=== PATIENT | female | born 1985 | race Caucasian/White ===

== ENCOUNTER 2019-11-28 15:18 | Outpatient (RCR) | payer OTHER, BC, SELFPAY ==
--- NOTE | 2019-11-28 16:26 | PTOPEVAL ---
Thank you for referring this patient to [facility]. Please review, sign, date and return this plan of care ELA. I agree with and certify that the following plan of care is medically necessary. Referring Physician Date Admitting Provider: Attending Provider: PHYSICIAN NOT ON STAFF Referring Provider: *PT Outpatient Evaluation Start: 11/28/19 15:37 Freq: Status: Active Protocol: Document 11/28/19 15:37 CRYSTAL (Rec: 11/28/19 16:18 CRYSTAL [email or web address]) Therapy Assessment Status Assessment Status Assessment Status Evaluation Evaluation Information Problem Onset 02/02/18 Subjective Information Pt. reports that she has been Query Text:As Reported By Patient/ experiencing neck pain and as Family well as numbness and tingling into both arms. Pt. reports that she developed pain after undergoing lung surgery. she reports that she had spontaneous pnuemothorax on 3 occassions. She reports Pt. reports that her symptoms have incresaed over the recent months. She reports that pain can fluctuate. She underwent MRI about 2 weeks ago but has not gotten her results as of yet. Pt. reports that pain does not affect her while she is sleeping, but it is difficult to fall asleep due to pain. She reports that her goal is to reduce her pain. 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 continues to work full Comments time despite continued pain. Pain Assessment Pain Scale Pain Scale Used Numeric (1 - 10) Self Report Pain Assessment Neck Reported Pain Level 7 Pain Description Aching,Contra
--- NOTE | 2020-01-02 11:25 | PCPTNOTE ---
Pt. has failed to return to the clinic since 12/01/19. She will be discharged from our care. Refer to pt. last daily note for discharge status. Hai Niño, MPT
== END 2019-12-01 09:26 | disposition home or self-care (01) ==
LOC: CHSPT 15:18
PROVIDERS: PCP Internal Medicine
DX: M79.2 Neuralgia and neuritis, unspecified (principal)
CPT/HCPCS: 97014; 97110; 97140; 97161; G0283

== ENCOUNTER 2020-04-03 14:56 | Outpatient (RCR) | payer OTHER, BC, SELFPAY ==
--- NOTE | 2020-04-09 18:22 | PTOPEVAL ---
Thank you for referring Ekaterina Mcqueen to [facility]. Please review, sign, date and return this plan of care ELA. I agree with and certify that the following plan of care is medically necessary. Referring Physician Date Admitting Provider: Attending Provider: Huey Alonzo, MD Referring Provider: *PT Outpatient Evaluation Start: 04/03/20 15:08 Freq: Status: Active Protocol: Document 04/03/20 15:09 CRYSTAL (Rec: 04/03/20 16:12 CRYSTAL [email or web address]) Therapy Assessment Status Assessment Status Assessment Status Evaluation Evaluation Information Problem Diagnosis right shoulder/neck pain with radiculopathy Onset 02/02/18 Subjective Information Pt. reports having expierenced Query Text:As Reported By Patient/ neck and shoulder pain since Family undergoing lung surgery in 2018. She reports that pain is radiating from the upper neck, down the shoulder blades and both arms and hands experinence numbness and tingling. She has undergone MRI which revealed some bulging disc. She reports that her neurologist did not recommend surgery at this time . She reports that her goal is to decrease her pain. 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 Activity of Daily Living Ability Independent Indoor/Home Mobility Independent Community Mobility Independent Stairs Ability Independent Functional Cognition (Planning, Shopping Independent , Taking Medications) Cooking Yes Cleaning Yes Laundry Yes Shopping Yes Driving Yes Pain Assessment Pain Scale Pain Scale Used Numeric (1 - 10) Self Report Pain Assessment Neck Reported Pain Level 5 Pain Description Aching,Burning Pain Score Pain Score 5: Self Report Cervical and Lumbar ROM Cervical ROM Cervical Flexion (0-60) 55 Query Text:Active in Degrees Cervical Extension (0-70) 50 Query Text:Active in Degrees Cervical Lateral Flexion Right (0-50) 30 Query Text:Active in Degrees Cervical Lateral Flexion Left (0-50) 30 Query Text:Active in Degrees Cervical Rotation Right (0-90)
--- NOTE | 2020-06-06 06:58 | PCPTNOTE ---
Pt. has failed to return to the clinic. She will be discharged from PT services at this time. Please refer to the last daily treatment note for pt. discharge status. Hai Niño, MPT
== END 2020-04-03 16:00 | disposition home or self-care (01) ==
LOC: CHSPT 14:56
PROVIDERS: Visit Provider Internal Medicine
DX: M25.511 Pain in right shoulder (principal); M54.2 Cervicalgia; M54.10 Radiculopathy, site unspecified
CPT/HCPCS: 97110; 97161

== ENCOUNTER → 2021-04-05 08:49 | Outpatient (CLI) | payer OTHER, BC, SELFPAY ==
--- NOTE | ~2021-04-05 | MR_ITS ---
EXAMINATION: MR cervical spine wo con DATE: 04/05/2021 09:36 INDICATION: Radicular left arm pain. TECHNIQUE: Magnetic resonance imaging (MRI) of the cervical spine was performed without intravenous c ontrast. Sequences included sagittal T2-weighted FSE, sagittal T2-weighted FS FSE, sagittal T1-weight ed FSE, axial MERGE and axial T2-weighted FSE. COMPARISON: None FINDINGS: Bone alignment is normal. Vertebral body heights are normal. Bone marrow signal intensity is normal . Intervertebral disc heights are normal with normal disc signal. Cord signal intensity is normal. Ce rvical soft tissues are unremarkable. The following disc levels are specifically discussed: C2-C3: The disc does not extend beyond the endplate margin. There is moderate right uncovertebral tony nt osteoarthritis. There is mild left and mild to moderate right facet joint osteoarthritis. There is mild right neural foraminal stenosis. There is no central canal stenosis. C3-C4: The disc does not extend beyond the endplate margin. There is mild bilateral uncovertebral tony nt osteoarthritis. There is mild left and mild to moderate right facet joint osteoarthritis. There is minimal right neural foraminal stenosis. There is no central canal stenosis. C4-C5: Disc is minimally bulging.. There is minimal bilateral uncovertebral joint osteoarthritis. The re is mild left and mild to moderate right facet joint osteoarthritis. There is no neural foraminal s tenosis. There is no central canal stenosis. C5-C6: Disc is minimally bulging. There is mild bilateral uncovertebral joint osteoarthritis. There i s mild bilateral facet joint osteoarthritis. There is minimal left neural foraminal stenosis. There i s no central canal stenosis. C6-C7: The disc does not extend beyond the endplate margin. There is minimal bilateral uncovertebral joint osteoarthritis. There is mild bilateral facet joint osteoarthritis. There is minimal left neura l foraminal stenosis. There is no central canal stenosis. C7-T1: The disc does not extend beyond the endplate margin. There is no uncovertebral joint osteoarth ritis. There is mild bilateral facet joint osteoarthritis. There is no neural foraminal stenosis. The re is no central canal stenosis. IMPRESSION: 1. Minimal to mild cervical spondylosis. Reviewed, dictated and finalized at location A.
== END ==
PROVIDERS: PCP Internal Medicine; Visit Provider Internal Medicine
DX: M79.622 Pain in left upper arm (principal); M47.22 Other spondylosis with radiculopathy, cervical region
CPT/HCPCS: 72141

== ENCOUNTER 2022-02-21 10:25 | Outpatient (CLI) | payer OTHER, BC, SELFPAY ==
--- NOTE | 2022-02-26 11:25 | WPDPFTINT ---
PFT Procedure Performed PFT Procedure Performed Spirometry with Pre/Post Bronchodilator Plethysmography (Lung Vol) Diffusing Cap (DLCO) Flow Vol Loop PFT Interpretation DOS: 02/21/2022 REQUESTING: Dr. Jack Srinivasan REASON FOR TESTING: Wheezing PULMONARY FUNCTION TESTS Results are reliable and reproducible. Spirometry: Pre bronchodilator FEV1 is 2.44 L, 93% predicted. Pre bronchodilator FVC is 2.6 L, 83% predicted. FEV1/FVC ratio is 94% normal. There is no change after bronchodilator administration. Lung volumes: Total lung capacity is 4.5 L, 101% predicted, normal. Residual volume is 137%, 1.91 L, mildly increased. The RV/TLC is increased 134% predicted. This is consistent with air trapping. Airway resistance is increased. Diffusion: DLCO is 112% predicted, 19 mL/mmHg/min. Normal. Flow volume loop: The flow volume loop has irregular inspiratory and expiratory limbs. This is abnormal however it is nonspecific. IMPRESSION: This study shows normal spirometry without response to bronchodilator, mild air trapping which suggests an obstructive process with normal diffusion. In the proper clinical setting this could represent asthma. The lack of response to bronchodilator should not preclude use of clinically indicated. Nicky De La Cruz MD
== END 2022-02-21 10:26 | disposition home or self-care (01) ==
LOC: CHSCARD 10:28
PROVIDERS: PCP Family Medicine; Visit Provider Family Medicine
DX: R06.2 Wheezing (principal)
CPT/HCPCS: 94060; 94726; 94729

== ENCOUNTER 2022-04-23 11:56 | Outpatient (CLI) | payer OTHER, BC, SELFPAY ==
[2022-04-23 12:11] LABS: Hematocrit 40.1 % (35.0-49.0); Hemoglobin 13.6 g/dL (12.0-15.0); Mean Corpuscular HGB Conc 33.9 g/dL (32.0-36.0); Mean Corpuscular Hemoglobin 31.1 pg (27.0-31.0); Mean Corpuscular Volume 91.8 fL (78.0-102.0); Mean Platelet Volume 10.1 fl (9.2-11.8); Platelet Count Result 283 K/mm3 (150-420); Red Blood Count 4.37 M/mm3 (4.20-5.40); Red Cell Distribution Width 11.9 % (11.6-14.4); White Blood Count 7.1 K/mm3 (4.8-10.8)
[2022-04-23 12:59] LABS: Alanine Aminotransferase 28 U/L (14-59); Albumin Level 3.6 g/dL (3.4-5.0); Alkaline Phosphatase 76 U/L (46-116); Anion Gap 6 mmol/L (8-16); Aspartate Amino Transferase 17 U/L (15-37); Bilirubin,Total 0.3 mg/dL (0.00-1.00); Blood Urea Nitrogen 9 mg/dL (7-18); Calcium 8.9 mg/dL (8.5-10.1); Carbon Dioxide 29 mmol/L (21-32); Chloride 105 mmol/L (98-108); Estimated Glomerular Filt Rate > 60; Folic Acid 8.9 ng/mL (8.6->20); Glucose 83 mg/dL (70-99); Magnesium 1.8 mg/dL (1.8-2.4); Osmolality Calculated 287 mOsm/kg (285-295); Potassium 3.9 mmol/L (3.5-5.1); Sodium 140 mmol/L (136-145); Total Protein 6.9 g/dL (6.4-8.2); Vitamin B12 562 pg/mL (193-986)
[2022-04-23 14:02] LABS: Thyroid Stimulating Hormone Reflex 3.96 u/IU/mL (0.36-3.74)
[2022-04-23 14:11] LABS: Free T4 Free Thyroxine Reflex 1.01 ng/dL (0.76-1.46)
[2022-04-26 11:07] LABS: Prealbumin 20 mg/dL (17-34)
== END 2022-04-23 11:57 | disposition home or self-care (01) ==
LOC: CHSLAB 11:59
PROVIDERS: PCP Family Medicine; Visit Provider Family Medicine
DX: R53.82 Chronic fatigue, unspecified (principal); E11.9 Type 2 diabetes mellitus without complications; E53.8 Deficiency of other specified B group vitamins
CPT/HCPCS: 36415; 80053; 82607; 82746; 83735; 84134; 84439; 84443; 85027

== ENCOUNTER 2022-06-26 09:11 | Outpatient (CLI) | payer OTHER, SELFPAY ==
[2022-06-26 10:22] LABS: SARS-CoV-2 RNA PCR Negative (Negative)
== END 2022-06-26 09:12 | disposition home or self-care (01) ==
LOC: CHSLAB 09:14
PROVIDERS: PCP Family Medicine; Visit Provider Nurse Practitioner Family
DX: Z20.822 Contact with and (suspected) exposure to COVID-19 (principal)
CPT/HCPCS: C9803; U0003; U0005

== ENCOUNTER 2022-12-02 14:31 | Outpatient (RCR) | payer OTHER, SELFPAY ==
--- NOTE | 2022-12-02 17:35 | PTOPEVAL1 ---
Assessment and note entered by Trinh Wilkes, PT Evaluation Information Assessment Status Evaluation Diagnosis Neck Pain Subjective Information Ekaterina Mcqueen reports in 2018 she had a collapsed lung 3 times and she had a VATS lung surgery in February 2018. She started having neck pain about a week after the surgery and the pain has not resolved. She also has pain into her shoulder blades and her right > left arm will go numb. She notes the pain across the shoulder blades has been worse over the last month for unknown reasons. She has worse pain when she has to use her arms a lot and when turning her head or looking up. 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 She gets pain in the front of her chest muscles as well with work activities. She is able to get relief when she sleeping. She also has headaches in the back of her head that are daily lately. She has had pain management in the past with epidural injections. She has also tried PT in the past but was not consistent with it. 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 Reported Pain Level Pain Score 9: Self Report Assessment PT Clinical Summary Ekaterina Mcqueen presents with chronic neck and upper back pain. She has had a worsening of symptoms in the last month for unknown reasons. 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 She objectively demonstrates tenderness and tension in the upper trapezius muscles, restrictions in vertebral mobility, decreased cervical AROM, impaired posture, and decreased functional abilities. She will benefit from skilled PT to address these limitations and return her to her PLOF. Plan of Care Interventions Electrical Stimulation,Hot Pack/Cold Pack,Manual Therapy,Neuro Re-education,Patient/Caregiver Educati,Therapeutic Activities,Therapeutic Exercise PT Services Indicated Yes Treatment Frequency and 2 times a week for 12 visits Duration These treatments will address the objective and functional deficits as defined above. The patient will be advanced safely and appropriately in order for the patient to progress towards his/her prior level of function. Additional exercises will be introduced and as well as a comprehensive home exercise program upon discharge, if needed, ?to ensure carryover of functional gains achieved in the clinic. This
--- NOTE | 2023-01-13 16:59 | PTOPPROG ---
Assessment and note entered by JT File, PT Evaluation Information Assessment Status Progress Diagnosis Neck Pain Subjective Information patient reports she continues to have increased pain in the neck with increased activities. she reports she has less pain with rest and therapy treatment. Assessment PT Clinical Summary mrs. mcmahon is making slow progress towards goals, but continues to have increased pain in the neck with increased activities. she has made progress in cervical rotation to the R side, but continues to be tight in L cervical rotation. she would do well to continue skilled PT to address this and other remaining rom and strength deficits. Plan of Care Interventions Electrical Stimulation,Hot Pack/Cold Pack,Manual Therapy,Neuro Re-education,Patient/Caregiver Educati,Therapeutic Activities,Therapeutic Exercise PT Services Indicated Yes Treatment Frequency and continue skilled PT 2x weekly for 2 more visits Duration These treatments will address the objective and functional deficits as defined above. The patient will be advanced safely and appropriately in order for the patient to progress towards his/her prior level of function. Additional exercises will be introduced and as well as a comprehensive home exercise program upon discharge, if needed, ?to ensure carryover of functional gains achieved in the clinic. This treatment plan has been reviewed and agreement upon by the patient.
== END 2023-01-13 13:49 | disposition home or self-care (01) ==
LOC: CHSPT 14:31
DX: M54.2 Cervicalgia (principal)
CPT/HCPCS: 97014; 97110; 97140; 97161; G0283

== ENCOUNTER 2023-02-17 16:13 | Emergency (ER) | payer OTHER, SELFPAY ==
[2023-02-17 16:20] VITALS: BP 159/119; PULSE 93; RESP 18; TEMP 36.9; O2SAT 100
--- NOTE | 2023-02-17 16:45 | ED.EXTPRO ---
HPI - Extremity Problem General Chief complaint: Extremity Problem,Nontraumatic Stated complaint: left big toe pain, infected toenail Time Seen by Provider: 02/17/23 16:42 Source: patient Mode of arrival: ambulatory Limitations: no limitations History of Present Illness HPI Narrative: 37-year-old white female presents with 4-5 day history of gradually increasing pain in the left great toe along the toenail. 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 She reports this reminds her of that. Denies any fever, chills, denies any pain on any other part of her extremity. Denies any recent injury. In denies any burning or exposure to toxic chemicals. Related Data Home Medications Medication Instructions Recorded Confirmed cholecalciferol (vitamin D3) 125 125 mcg PO DAILY 02/07/22 02/17/23 mcg (5,000 unit) capsule tizanidine 4 mg capsule 4 mg PO QHS PRN Pain 02/07/22 02/17/23 Allergies Allergy/AdvReac Type Severity Reaction Status Date / Time Penicillins AdvReac Mild Unknown Verified 02/17/23 16:25 Review of Systems Review of Systems: All systems reviewed & are unremarkable except as noted in HPI and below ( HPI) [facility] Social History Social History Smoking status: Never smoker Alcohol intake: never Substance use: never Living arrangements: with family Additional living arrangements comments: with her boyfriend Occupation/Education: occupation 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 Gender identity (if verbalized by the patient): Female Exam Narrative: awake, alert, pleasant Const: General: healthy appearing Nutritional Appearance: well nourished Orientation/consciousness: patient oriented x3 Limitations: no limitations HENMT: Head: normal to inspection Face and sinus: normal facial exam Eyes: Conjunctivae: conjunctivae normal Pupils: Equal, round and reactive pupils present EOM: EOMs intact bilaterally Neck: Neck: normal visual inspection Resp: Effort & Inspection: normal respiratory effort Skin: General skin exam: normal color Rashes: no rashes Other: except for the left great toe which appears to have a medial ingrown nail, with erythema, swelling, Ms. Devonte paronychia is present. No proximal erythematous streak. the paronychial area is quite tender Neuro: General: patient oriented x3 and moves all extremities Extrem: General: normal to inspection Other: as noted above Psych: Mental Status: mental status grossly normal Affect: normal affect Attitude: cooperative Course Vital Signs Vital signs: Vital Signs Temperature 36.9 C 02/17/23 16:20 Pulse Rate 93 02/17/23 16:20 Respiratory Rate 18 02/17/23 16:20 Blood Pressure 159/119 H 02/17/23 16:20 Pulse Oximetry 100 02/17/23 16:20 Oxygen Delivery Room Air 02/17/23 16:20 Temperature 36.9 C 02/17/23 16:20 Pulse Rate 93 02/17/23 16:20 Respiratory Rate 18 02/17/23 16:20 Blood Pressure 150/90 H 02/17/23 19:03 Pulse Oximetry 100 02/17/23 16:20 Oxygen Delivery Room Air 02/17/23 16:20 Procedures Other Procedure Procedure 1: Other Procedure: left great toe was clean with dilute Betadine, anesthetized with 1% lidocaine utilizing a digital block and the paranychial tissue along the medial aspect was elevated, drained, and the ingrown portion of the medial toenail was elevated off the nail bed, approximate 4 mm section was cut back all the way to the root and removed including the root. Redundant paronychia tissue was sharply debrided, the whole area was thoroughly irrigated with sterile saline, and the nailbed cauterized with silver nitrate. the paranychial tissue along the lateral aspect was elevated, drained, and the ingrown portion of the lateral toenail was elevated off the nail bed, approximate 4 mm section was cut back all the way to the root and removed
[2023-02-17] MEDS: LIDOCAINE HCL 1% LOCAL INJ 10 ML VIAL INFILTRATE (16:49)
[2023-02-17] MEDS: SILVER NITRATE (*SP) STICK 1 EACH TOPICAL (16:50)
--- NOTE | 2023-02-17 17:38 | PC.NURSE ---
Suture tray at bedside, waiting on ERP.
--- NOTE | 2023-02-17 18:50 | PC.NURSE ---
Applied tefla and coban to wound.
[2023-02-17 19:03] VITALS: BP 150/90
== END 2023-02-17 19:05 | disposition home or self-care (01) ==
PROVIDERS: Emergency Provider Emergency Medicine
DX: L60.0 Ingrowing nail (principal); L03.032 Cellulitis of left toe; R03.0 Elevated blood-pressure reading, without diagnosis of hypertension
CPT/HCPCS: 11750; 99283

== ENCOUNTER 2023-05-15 09:26 | Emergency (ER) | payer OTHER, SELFPAY ==
[2023-05-15 09:26] VITALS: BP 145/93; PULSE 84; RESP 16; TEMP 36.6; O2SAT 100
--- NOTE | 2023-05-15 10:26 | ED.GENADULT ---
HPI - General Adult General Chief complaint: Skin/Abscess/Foreign Body Stated complaint: bug bite in right armpit Source: patient Mode of arrival: ambulatory Limitations: no limitations History of Present Illness HPI narrative: patient complains of a area for left under arm posteriorly redness that she thinks might be a spider bite started 2 days ago it has gotten larger sore she is using ibuprofen . She found a small spider in her car couple days ago. Denies any loss of function fever cough sore throat difficulty breathing runny nose nausea vomiting diarrhea problems eating drinking stooling or voiding other lumps or bumps or other pain dizziness or lightheadedness numbness or tingling bleeding or bruising problems eating or drinking or any other complaints. 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 Exam Narrative: ? White patient no apparent distress.? Head normocephalic, atraumatic.? Eyes conjunctiva pink sclera nonicteric.? Extraocular movements are intact.? Ears externally normal.? Oropharynx is clear with moist mucous membranes without exudates.? Neck is supple nontender no lymphadenopathy.? Back is nontender.? Lungs are clear.? Heart is regular rate and rhythm without murmurs gallops or rubs.? Chest wall is nontender.? Right posterior axilla has area of about 5 x 4 cm erythema with a central punctate red dot. Minimally tender no induration no fluctuance. ? Extremities no cyanosis clubbing or edema.? Skin is warm and dry. Lesion as described above.? Neurological patient is alert and oriented x4.? Motor and sensory grossly intact.? Gait is normal. Course Vital Signs Vital signs: Vital Signs Temperature 36.6 C 05/15/23 09:26 Pulse Rate 84 05/15/23 09:26 Respiratory Rate 16 05/15/23 09:26 Blood Pressure 145/93 H 05/15/23 09:26 Pulse Oximetry 100 05/15/23 09:26 Oxygen Delivery Room Air 05/15/23 09:26 Temperature 36.6 C 05/15/23 09:26 Pulse Rate 84 05/15/23 09:26 Respiratory Rate 16 05/15/23 09:26 Blood Pressure 145/93 H 05/15/23 09:26 Pulse Oximetry 100 05/15/23 09:26 Oxygen Delivery Room Air 05/15/23 09:26 Medical Decision Making MDM Narrative Medical decision making narrative: Patient was placed in room 1 history and physical was performed. Independent Historian: ? Patient Differential Dx includes but not limited to: cellulitis spider bite possible, abscess not likely no fluctuance no induration Medications were Reviewed:? medications reviewed? Medications treatments given: Independently Interpreted by me:? External Source Review:?? Medical conditions/social Situation Impacting Patients Care:?? Shared decision Making: evaluation was discussed all questions were asked and answered and patient agreed on Plan. ? Clinical impression:? Cellulitis right thorax ? ? Patient disposition: discharge home? ? Condition at discharge: stable Vital Signs Vital Signs: Vital Signs Temperature 36.6 C 05/15/23 09:26 Pulse Rate 84 05/15/23 09:26 Respiratory Rate 16 05/15/23 09:26 Blood Pressure 145/93 H
[2023-05-15 11:22] VITALS: BP 121/90; PULSE 78; RESP 14; O2SAT 99
== END 2023-05-15 11:21 | disposition home or self-care (01) ==
PROVIDERS: Emergency Provider Emergency Medicine
DX: L03.313 Cellulitis of chest wall (principal)
CPT/HCPCS: 99283